=== PATIENT | female | born 1990 | race African-American/Black ===

== ENCOUNTER 2017-10-26 11:20 | Observation (INO) ==
[2017-10-26] MEDS ORDERED: SODIUM CHLORIDE 0.9% 1,000 ML IV STA (12:31)
[2017-10-26] MEDS ORDERED: ONDANSETRON 4 MG/2 ML VIAL IV STA (12:31)
[2017-10-26 12:33] LABS: Apearance,Urine CLOUDY (Clear); Bacteria,Urine Occasional /HPF (Few); Bilirubin,Urine Negative (Negative); Blood, Urine Small mg/dL (Negative); Glucose,Urine (UA) Negative (Negative); Hyaline Casts,Urine 16 /LPF (0-3); Ketones,Urine 80 mg/dL (Negative); Mucus,Urine Many /LPF (Occasional); Nitrite,Urine Negative (Negative); Protein,Urine 30 MG/DL; RBC,Urine 20 /HPF (0-4); Squamous Epithelial Cell,Urine Occasional /HPF (0-10); Urine Color Yellow (Yellow); Urine Specific Gravity 1.019 (1.001-1.035); Urine Urobilinogen < 2.0 EU/DL (0.2-1.0); WBC,Urine 2 /HPF (0-6)
[2017-10-26] MEDS ORDERED: ONDANSETRON 4 MG/2 ML VIAL ONE ×2 (12:50→15:52)
[2017-10-26 12:57] LABS: Basophils % 0.2 % (0.0-0.8); Hematocrit 40.1 VOL% (35.7-47.0); Immature Granulocytes % 0.3 %; Immature Granulocytes Absolute 0.04 #; Lymphocytes # 0.7 10*3/uL (1.4-4.0); Lymphocytes % 5.8 % (21.3-54.2); Mean Corpuscular HGB Conc 32.4 GM/DL (32-36); Mean Corpuscular Hemoglobin 29 PG (27-34); Mean Corpuscular Volume 89.5 FL (87-102); Mean Platelet Volume 11.2 FL (9.6-12.0); Monocytes # 0.6 10*3/uL (0.11-0.8); Monocytes % 4.9 % (1.7-12.7); Neutrophils # 10.3 10*3/uL (1.4-7.4); Neutrophils % 88.8 % (38.7-73.9); Platelet Count 236 T/CUMM (130-400); Red Blood Count 4.48 MC/CUMM (3.8-5.5); Red Cell Distribution Width 13.1 % (9.3-17.3); White Blood Count 11.6 T/CUMM (4-12)
[2017-10-26 13:09] LABS: PT Patient Result 10.9 SECS
[2017-10-26 13:21] LABS: Amylase 60 U/L (25-115)
[2017-10-26 13:27] LABS: Alanine Aminotransferase 19 U/L (13-56); Albumin 4.5 G/DL (3.4-5.0); Alkaline Phosphatase 56 U/L (45-117); Aspartate Amino Transferase 15 U/L (0-37); Bilirubin,Total < 0.39 MG/DL (0.2-1.0); Blood Urea Nitrogen 6 MG/DL (7-18); Calcium 8.9 MG/DL (8.5-10.1); Glucose 118 MG/DL (74-106); Lactic Acid 2.1 MMOL/L (0.4-2.0); Osmolality,Calculated 277.4 MOS/KG (273-304); Potassium 3.8 MMOL/L (3.5-5.1); Sodium 140 MMOL/L (136-145)
[2017-10-26] MEDS ORDERED: ONDANSETRON 4 MG/2 ML VIAL IV PRN (14:46)
[2017-10-26] MEDS ORDERED: HYDROmorphone 2 MG/1 ML VIAL IV PRN (14:46)
[2017-10-26] MEDS ORDERED: ACETAMINOPHEN 325 MG TABLET PO PRN (14:46)
[2017-10-26] MEDS ORDERED: HYDROmorphone 2 MG/1 ML VIAL ONE (15:52)
[2017-10-26] MEDS ORDERED: cefTRIAXone 1,000 MG VIAL IM SCH (16:00)
[2017-10-26] MEDS: SODIUM CHLORIDE 0.9% 1,000 ML IV SCH ×2 (16:04→18:20)
[2017-10-26] MEDS ORDERED: diphenhydrAMINE 50 MG/1 ML VIAL IV PRN (18:11)
[2017-10-26] MEDS: TAMSULOSIN 0.4 MG CAPSULE PO SCH (18:17)
[2017-10-26] MEDS: cefTRIAXone 1,000 MG in SYRINGE 1 EACH IV SCH (18:20)
[2017-10-27] MEDS: SODIUM CHLORIDE 0.9% 1,000 ML IV SCH ×3 (01:16→10:56)
[2017-10-27] MEDS: TAMSULOSIN 0.4 MG CAPSULE PO SCH (09:45)
[2017-10-27] MEDS ORDERED: DEXTROSE 50% 25 GM/50 ML VIAL IV ONE (11:38)
[2017-10-27] MEDS ORDERED: DEXTROSE 50% 25 GM/50 ML VIAL IV PRN (11:46)
[2017-10-27] MEDS: cefTRIAXone 1,000 MG in SYRINGE 1 EACH IV SCH ×2 (13:15→20:19)
[2017-10-27] MEDS ORDERED: cefTRIAXone 1,000 MG VIAL ONE (13:16)
[2017-10-27] MEDS ORDERED: DEXAMETHASONE 10 MG/1 ML VIAL ONE (13:47)
[2017-10-27] MEDS ORDERED: SEVOFLURANE 1 UNIT/15 MINUTE INH ONE (13:47)
[2017-10-27] MEDS ORDERED: MIDAZOLAM 2 MG/2 ML VIAL ONE (13:47)
[2017-10-27] MEDS ORDERED: PROPOFOL 200 MG/20 ML VIAL IV ONE (13:47)
[2017-10-27] MEDS ORDERED: fentaNYL 100 MCG/2 ML VIAL ONE (13:47)
[2017-10-27] MEDS ORDERED: ONDANSETRON 4 MG/2 ML VIAL ONE (13:47)
[2017-10-27] MEDS ORDERED: SODIUM CHLORIDE 0.9% 100 ML IV ONE (13:48)
[2017-10-27 20:23] VITALS: BP 131/75
== END 2017-10-27 18:30 | disposition home or self-care (01) ==
LOC: N.ED 11:20 → N.EDINP 11:20 → N.5E 18:05
PROVIDERS: ADMIT Surgery; ATTEND Surgery